=== PATIENT | male | born 1955 | race Caucasian/White ===

== ENCOUNTER → 2017-04-06 | Outpatient (REF) ==
[~2017-04-06] MED LIST: ALDACTONE 100M100 MG PO; APRESOLINE 25MG25 MG PO; ASPIRIN E.C. 8181 MG PO; CALCIUM 600600 MG PO; CATAPRES 0.1MG0.1 MG PO; CEFTIN500 MG PO; DIABETA 2.5MG2.5 MG PO; FOLIC ACID 11 MG/TA1 PO; GLUCOPHAGE500 MG/TAB PO; KRISTALOSE20 GM/PACK PO; LANTUS100 U/ML SQ; LASIX 40MG TABL40 MG PO; LOPRESSOR 225 MG/TAB PO; MAG-OX 400400 MG/TAB PO; MULTIPLE VITAMI1 CAP PO; MYFORTIC360 MG PO; NATURAL IRON65 MG PO; NORVASC 10MG10 MG PO; ONE DAILY1 TA1 PO; PREVACID 15MG15 M1 PO; PRILOSEC 20MG20 MG PO; PRINIVIL10 MG PO; PROGRAF 0.5MG0.5 MG PO; VANCOCIN HCL1 GM IV; VITAMIN D 400400 IU PO; XIFAXAN550 MG PO
== END ==
LOC: ZLAB.WCH 18:06
DX: Z01.89 Encounter for other specified special examinations (principal)

== ENCOUNTER → 2017-05-19 | Outpatient (REF) | LOC: ZLAB.WCH 15:22 | DX: Z01.89 Encounter for other specified special examinations (principal) ==

== ENCOUNTER → 2017-09-01 | Outpatient (REF) | LOC: ZLAB.WCH 18:58 | DX: Z01.89 Encounter for other specified special examinations (principal) ==

== ENCOUNTER → 2020-11-13 | Outpatient (CLI) | payer MEDICARE | LOC: COL.RAD 07:40 | DX: N18.31 Chronic kidney disease, stage 3a (principal); D84.9 Immunodeficiency, unspecified; Z94.4 Liver transplant status; Z90.49 Acquired absence of other specified parts of digestive tract ==